=== PATIENT | male | born 1975 | race Caucasian/White ===

== ENCOUNTER 2025-02-11 15:18 | Emergency (ER) | payer BC ==
[~2025-02-11] VITALS: Ht 177.8 cm; Wt 82.2 kg
[2025-02-11] MEDS ORDERED: IMITREX50 MG PO (15:44)
[2025-02-11] MEDS ORDERED: SODIUM CHLORIDE 0.9% 500 ML IV ONE (15:45)
[2025-02-11] MEDS ORDERED: ondansetron HCL 4 MG/2 ML VIAL IV ONE ×2 (15:45→18:15)
[2025-02-11 16:09] LABS: BASOPHILS 0.5 % (0.2-1.2); BILIRUBIN, URINE POSITIVE (negative); BLOOD/HGB, URINE TRACE-L (Negative); EOSINOPHILS 0 % (0.8-7.0); HEMATOCRIT 46.1 % (40.1-51.0); HEMOGLOBIN 16.3 g/dL (13.7-17.5); KETONE, URINE >=80 (Negative); LEUK ESTERASE, URINE NEGATIVE (negative); MCH 31.8 PG (25.7-32.2); MCHC 35.4 g/dL (32.3-36.5); MONOCYTES 7.6 % (5.3-12.2); NEUTROPHILS 81.6 % (34.0-67.9); NITRITE, URINE NEGATIVE (negative); PLATELET COUNT 392 K/uL (163-337); RBC 5.12 M/uL (4.63-6.08)
[2025-02-11 16:22] LABS: EPITHELIAL CELLS, URINE SQUAMOUS 1+ /lpf (0-1+)
[2025-02-11 16:23] LABS: BACTERIA, URINE NONE SEEN /hpf (negative); CASTS, URINE NONE SEEN \\lpf; COLLECTION TYPE, URINE CLEAN CATCH; CRYSTALS, URINE NONE SEEN (0-1+); REFLEX CULTURE, URINE No (No)
[2025-02-11 16:25] LABS: ALBUMIN 3.9 g/dL (3.4-5.0); BILIRUBIN, TOTAL 0.8 mg/dL (0.2-1.0); BUN/CREATININE RATIO 10.74 (6.0-28.6); CALCIUM 9.7 mg/dL (8.5-10.1); CREATININE, SERUM 1.21 mg/dL (0.70-1.30); MAGNESIUM 1.8 mg/dL (1.8-2.4); PROTEIN, TOTAL 7.8 g/dL (6.4-8.2)
[2025-02-11] MEDS ORDERED: POTASSIUM CHLORIDE 20 MEQ/15 ML CUP PO ONE (18:00)
[2025-02-11] MEDS ORDERED: SODIUM CHLORIDE 0.9% 1,000 ML IV PRN (18:15)
[2025-02-11] MEDS ORDERED: ONDANSETRON ODT8 MG PO (20:12)
[2025-02-11] MEDS ORDERED: ONDANSETRON 4 MG HOME.PACK SL ONE (20:15)
[2025-02-11 20:35] VITALS: BP 136/93
== END 2025-02-11 20:35 | disposition home or self-care (01) ==
LOC: ED 15:18
PROVIDERS: Emergency Medicine
DX: R11.10 Vomiting, unspecified (principal)
CPT/HCPCS: 36415; 80053; 81001; 83690; 83735; 85025; 96361; 96374; 96376; 99284-25; A9270; J2405; J7030; J7040